=== PATIENT | male | born 1995 | race Hispanic/Latino ===

== ENCOUNTER 2024-10-16 20:38 | Emergency (ER) | payer OTHER ==
[2024-10-16] MEDS ORDERED: Ondansetron PF 4 MG/2 ML Vial ONE (21:43)
[2024-10-16 22:11] LABS: ALT (SGPT) 103 U/L (Less than 45); AST (SGOT) 187 U/L (11-34); Albumin 4.0 g/dL (3.1-4.5); Alkaline Phosphatase 61 U/L (40-110); Anion Gap 17 mmol/L (10-20); BUN (Urea Nitrogen) 8 mg/dL (8.9-20.6); Bilirubin, Total 0.8 mg/dL (0.3-1.2); Calc. Creatinine Clearance 0 mL/min (70-130); Calcium 8.8 mg/dL (7.8-10.44); Carbon Dioxide 20 mmol/L (22-29); Chloride 109 mmol/L (98-107); Globulin 3.2 g/dL (2.4-3.5); Glucose 79 mg/dL (70-105); Lipase 56 U/L (8-78); Potassium 3.7 mmol/L (3.5-5.1); Sodium 142 mmol/L (136-145)
[2024-10-16] MEDS ORDERED: Lidocaine Viscous Sol 2% 15 ml UD Cup ONE (23:28)
[2024-10-16] MEDS ORDERED: Mag-Al 1200 mg/1200 mg/30 ML UDCUP ONE (23:28)
== END 2024-10-17 00:25 ==
LOC: CSHERS 20:38
DX: K29.00 Acute gastritis without bleeding (principal); E11.9 Type 2 diabetes mellitus without complications; Z79.899 Other long term (current) drug therapy; Z79.84 Long term (current) use of oral hypoglycemic drugs
CPT/HCPCS: 80053; 83690; 96374; J2405